=== PATIENT | male | born 1975 | race Caucasian/White ===

== ENCOUNTER → 2017-02-11 | Outpatient (CLI) | payer BC ==
--- NOTE | 2017-02-11 08:25 | REP ---
CT Head without contrast HISTORY: Injury COMPARISON: MR 06/03/2005 There is no intraparenchymal hemorrhage, acute infarct, mass or midline shift. The ventricular system is normal in appearance. There is no extra cerebral collection. There is no fracture. The visualized sinuses are clear. A subgaleal hematoma is present overlying the right frontal bone. IMPRESSION: There is no intracranial lesion. Signed by Donny Gotti MD 02/11/2017 08:17 A
== END ==
LOC: M RAD 06:48
PROVIDERS: ATTEND Neurological Surgery
DX: S09.90XA Unspecified injury of head, initial encounter (principal); X58.XXXA Exposure to other specified factors, initial encounter; Y92.89 Other specified places as the place of occurrence of the external cause

== ENCOUNTER → 2021-12-11 | Outpatient (CLI) | payer BC | LOC: M WUC 14:23 | PROVIDERS: ATTEND Physician Assistant | DX: R31.9 Hematuria, unspecified (principal) ==

== ENCOUNTER → 2021-12-11 | Outpatient (REF) | payer BC | LOC: M LAB REF 15:30 | PROVIDERS: ATTEND Physician Assistant | DX: R31.9 Hematuria, unspecified (principal) ==